=== PATIENT | female | born 1950 | race Caucasian/White ===

== ENCOUNTER 2017-09-22 07:40 | Day surgery (SDC) | payer MEDICARE, BC ==
[~2017-09-22 07:40] MED LIST: Lactated Ringers 1,000 ML IV SCH; Lidocaine 1%/Sod Bicarbonate in NS 8.4% 1 ML Syringe IDERM PRN; Sodium Chloride 0.9% 10 ML Syringe FLUSH PRN
[2017-09-22] MEDS ORDERED: Lidocaine 1% 4 ML ONE (08:27)
[2017-09-22] MEDS ORDERED: Midazolam 1 MG/ML 2 ML SDV ONE (08:27)
[2017-09-22] MEDS ORDERED: Propofol 200 MG/20 ML SDV ONE (08:27)
[2017-09-22] MEDS ORDERED: Ondansetron 4 MG/2 ML SDV ONE (08:27)
[2017-09-22] MEDS ORDERED: Rocuronium 50 MG/5 ML Vial ONE (08:27)
[2017-09-22] MEDS ORDERED: fentaNYL 250 MCG/5 ML SDV ONE (08:27)
[2017-09-22] MEDS ORDERED: ceFAZolin 1 GM Vial ONE (08:28)
[2017-09-22] MEDS ORDERED: Lidocaine 1% with EPINEPHrine 1:100,000 20 ML MDV ONE (08:37)
--- NOTE | 2017-09-22 08:52 | PCM.PREANE ---
Preanesthetic Assessment - Anesthesia/Transfusion/Family Hx Anesthesia History: Prior Anesthesia Without Reaction Family History of Anesthesia Reaction: No Transfusion History: No Prior Transfusion(s) - Review of Systems General: No Symptoms Pulmonary: No Symptoms Cardiovascular: No Symptoms Gastrointestinal: No Symptoms Neurological: No Symptoms Other: Reports: None - Physical Assessment NPO Status Date: 09/21/17 NPO Status Time: 20:00 Pulse: 69 O2 Sat by Pulse Oximetry: 96 Respiratory Rate: 16 Blood Pressure: 159/84 Temperature: 36.9 C Height: 1.6 m Weight: 69.853 kg ASA Class: 2 Mental Status: Alert & Oriented x3 Dentition: Reports: Normal Dentition, Bridge (on bottom front wire) Thyro-Mental Finger Breadths: 3 Mouth Opening Finger Breadths: 3 ROM/Head Extension: Full Lungs: Clear to Auscultation, Normal Respiratory Effort Cardiovascular: Regular Rate, Regular Rhythm, No Murmurs - Lab Values: on chart - Imaging/EKG Impressions: Sinus rhythm on chart - Allergies Allergies/Adverse Reactions: Allergies Allergy/AdvReac Type Severity Reaction Status Date / Time No Known Allergies Allergy Verified 09/21/17 14:41 - Anesthesia Plan Pre-Op Medication Ordered: None - Acknowledgements Anesthesia Type Planned: General Anesthesia Pt an Appropriate Candidate for the Planned Anesthesia: Yes Alternatives and Risks of Anesthesia Discussed w Pt/Guardian: Yes Pt/Guardian Understands and Agrees with Anesthesia Plan: Yes PreAnesthesia Questionnaire HEENT History: Reports: Impaired Vision Cardiovascular History: Reports: Hypertension Respiratory History: Reports: None Gastrointestinal History: Reports: None Genitourinary History: Reports: None [employer]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: Musculoskeletal History: Reports: None Neurological History: Reports: None Psychiatric History: Reports: None Endocrine/Metabolic History: Reports: None Hematologic History: Reports: None Immunologic History: Reports: None Oncologic (Cancer) History: Reports: None Dermatologic History: Reports: None - Past Surgical History Head Surgeries/Procedures: Reports: None HEENT Surgical History: Reports: None Cardiovascular Surgical History: Reports: None Respiratory Surgical History: Reports: None GI Surgical History: Reports: Colonoscopy Female Surgical History: Reports: Tubal Ligation Endocrine Surgical History: Reports: None Neurological Surgical History: Reports: None Musculoskeletal Surgical History: Reports: None Oncologic Surgical History: Reports: None Dermatological Surgical History: Reports: None - SUBSTANCE USE Smoking Status *Q: Never Smoker Tobacco Use Within Last Twelve Months: No Second Hand Smoke Exposure: No Days Per Week of Alcohol Use: 0 Number of Drinks Per Day: 0 Total Drinks Per Week: 0 Recreational Drug Use History: No - HOME MEDS Home Medications: Home Meds Eszopiclone 1 mg PO BEDTIME PRN 09/21/17 [History] LORazepam 0.5 mg PO BID PRN 09/21/17 [History] - CURRENT (IN HOUSE) MEDS Current Meds: Current Medications Lactated Ringer's (Ringers, Lactated) 1,000 mls @ 125 mls/hr IV ASDIRECTED ROSALVA Stop: 09/22/17 23:00 Lidocaine/Sodium Bicarbonate (Buffered Lidocaine 1% In Ns 8.4%) 0.25 ml IDERM ONETIME PRN PRN Reason: Prior to IV Start Stop: 09/22/17 18:00 Sodium Chloride (Saline Flush) 10 ml FLUSH ASDIRECTED PRN PRN Reason: Keep Vein Open Stop: 09/22/17 18:00 Discontinued Medications Cefazolin Sodium (Ancef) Confirm Administered Dose 2 gm .ROUTE .STK-MED ONE Stop: 09/22/17 08:29 Fentanyl (Sublimaze) Confirm Administered Dose 250 mcg .ROUTE .STK-MED ONE Stop: 09/22/17 08:28 Lidocaine HCl (Xylocaine-Mpf 1%) Confirm Administered Dose 4 mls @ as directed .ROUTE .STK-MED ONE Stop: 09/22/17 08:28 Lidocaine/Epinephrine (Xylocaine 1% With Epinephrine 1:100,000) Confirm Administered Dose 20 ml .ROUTE .STK-MED ONE Stop: 09/22/17 08:38 Midazolam HCl (Versed 1 Mg/Ml) Confirm Administered Dose 2 mg .ROUTE .STK-MED ONE Stop: 09/22/17 08:28 Ondansetron HCl (Zofran) Confirm Administered Dose 4 mg .ROUTE .STK-MED ONE Stop: 09/22/17 08:28 Propofol (Diprivan 20 Ml) Confirm Administered Dose 200 mg .ROUTE .STK-MED ONE Stop: 09/22/17 08:28 Rocuronium [place] (Zemuron) Confirm Administered Dose 50 mg .ROUTE .STK-MED ONE Stop: 09/22/17 08:28 Sodium Chloride (Normal Saline) Confirm Administered Dose 50 ml .ROUTE .STK-MED ONE Stop: 09/22/17 08:38
[2017-09-22] MEDS ORDERED: Scopolamine 1.5 MG Transdermal Patch TOP ONE (09:10)
[2017-09-22] MEDS ORDERED: diphenhydrAMINE 50 MG/ML SDV ONE (10:00)
[2017-09-22] MEDS ORDERED: Dexamethasone 4 MG/ML SDV ONE (10:00)
[2017-09-22] MEDS ORDERED: Lactated Ringers 1,000 ML ONE ×2 (10:00→11:14)
[2017-09-22] MEDS ORDERED: HYDROmorphone 0.5 MG/0.5 ML Syringe ONE ×2 (10:07)
[2017-09-22] MEDS: Sodium Chloride 0.9% 50 ML SDV ONE ×2 (10:13→10:14)
[2017-09-22] MEDS ORDERED: Ketorolac 30 MG/ML SDV ONE (10:22)
[2017-09-22] MEDS ORDERED: fentaNYL 100 MCG/2 ML SDV ONE ×2 (10:52→11:01)
[2017-09-22] MEDS ORDERED: Ondansetron 4 MG/2 ML SDV IVPUSH PRN (11:29)
[2017-09-22] MEDS ORDERED: Acetaminophen/oxyCODONE 325-5 MG Tab PO PRN (11:29)
--- NOTE | 2017-09-22 11:34 | PCM.OPNOTE ---
- General Post-Op/Procedure Note Date of Surgery/Procedure: 09/22/17 Operative Procedure(s): Total vaginal hysterectomy with bilateral salpingo- oophorectomy, anterior and posterior vaginal repair with perineoplasty, subfascial mid-urethral sling procedure Findings: 1. Grade 3 cystocele. 2. Grade 2 rectocele 3. Grade 2 uterine descensus 4. Breast urinary incontinence Pre Op Diagnosis: 1. Grade 3 cystocele. 2. Grade 2 rectocele. 3. Grade 2 uterine descensus. 4. Breast urinary incontinence Post-Op Diagnosis: Same Anesthesia Technique: General ET Tube Other Anesthesia Type: Lidocaine quarter percent with epinephrinelocal approximately 30 mL total Primary Surgeon: Luis Coello Secondary Surgeon: Malik Levin Anesthesia Provider: Trip Richardson Reason [employer] Was Necessary: Retraction, assistance, patient safety, quality of care Role of [employer]: Retraction and assistance Pathology: Uterus, bilateral fallopian tubes and ovaries in one specimen container Output, Urine Amount: 200 EBL in mLs: 35 Complications: None Condition: Good Free Text/Narrative:: Surgery duration: 74 minutes Procedure: The patient was placed in supine position on the operating table. She received 2 g of Ancef preoperatively for infection prophylaxis and had sequential compression stockings in place for DVT prophylaxis. General endotracheal anesthesia was accomplished. After positioning, and adequate prep and drape, the procedure was then performed. Sterile speculum was placed in the vagina and cervix was visualized. Cervix was injected with [lidocaine quarter percent with epinephrine]. [20 cc] used. A full circumference incision was made in the cervical epithelium. The bladder was pushed well back off cervix. Posterior cul-de-sac was then entered sharply without problems. Left uterosacral was crossclamped with a Enseal vessel closure system. The left uterosacral and then the right uterosacral ligament pedicles were developed using the Enseal system. The anterior cul-de-sac was then entered without problems and the uterine vasculature, cardinal ligament and broad ligament then developed using Enseal vessel closure system. The uterus was inverted at this time and upper broad ligament fallopian tube pedicles were crossclamped with Randolph clamps. Specimen was totally removed. Left and right fallopian tube was normal but atrophic in appearance secondary to menopause. Using the vessel closure system each of the tubes was then removed and sent with the specimen. Ovaries removed in similar fashion bilaterally all specimens were sent in separate container. The patient was found to be hemostatically intact at this time. A pursestring suture was and placed in the peritoneal cavity externalizing pedicles in case of bleeding. Anterior vaginal repair was performed in the routine fashion. The midline epithelium was grasped approximately 2 cm from the urethral meatus. The epithelium at the vaginal cuff after removal of the uterus was grasped 2 with Allis clamps. The epithelium was infiltrated with lidocaine quarter percent with epinephrine approximately 10 mL. Midline incision was made in the epithelium was dissected off the underlying support tissue. The vesicovaginal fascia that remained was then reapproximated midline with approximately 6 the type sutures of 0 Monocryl. This effectively reduced the cystocele. Excess epithelium was removed on each side sharply and the epithelium was reapproximated using 3-0 Monocryl a short running suture. At this time the vaginal cuff was closed anteriorly to posteriorly. Patient's bladder was again drained with a red rubber catheter. 35 mL normal urine was removed. The epithelium overlying the urethra was grasped approximately 1 cm from the urethral meatus and approximately 2 cm cephalad from there with Allis clamps. The area of the skin overlying the medial aspect of the obturator foramen on each side just posterior to the origin the abductor longus muscle was marked with a marking pen. These 2 areas and the sub-fascial layer of the vaginal were then infiltrated with lidocaine quarter percent with epinephrinetotal of approximately 10 mL was used. incisions made in the epithelium overlying the urethra and 2 small stab wounds 3 mm in length were made in the 2 areas of the panty line of the patient. The subfascial planes and adequately dissected bilaterally to allow placement of the mesh. The helical adapter was then placed through the obturator on patient's left side brought out through the vaginal subfascial plane. Mesh was attached to it and then was pulled back through the obturator foramen. Same was done on the right side. Mesh was then snugged up to the urethra. Dilator 15 mm in diameter was used as a spacer to place the mesh in a tension-free position. At this point the mesh was cut off at the skin surface and the dilator was removed. The midline epithelium was closed with a short running suture of 3-0 Monocryl. Skin incisions were closed with Dermabond skin glue. These bladder was filled with approximately 20/40 cc of normal saline at the very end of the case to facilitate voiding and therefore discharged home. Posterior repair was then performed.The uppermost portion of the rectocele was identified and was grasped midline with an Allis clamp. The introital area was grasped at approximately the 4:00 and 8:00 positions at the junction of the vaginal and vulvar epithelium. The area of epithelium was then infiltrated with lidocaine quarter percent with epinephrine. A masoud-shaped piece of epithelium was removed from the posterior introital and perineal area. The vaginal epithelium was then undermined superiorly to the top of the rectocele. Was then incised midline. With sharp and blunt dissection the epithelium was then dissected off of the underlying vesicovaginal fascia. At this point approximately 4 sutures of 0 Monocryl were placed to reapproximate the lateral supportive tissue midline and reduce the rectocele. The excess epithelium was then excised and the epithelium overlying the rectocele repair was then reapproximated with a running suture of 3-0 Monocryl. Perineoplasty was performed using 4 V-type stitches of 0 Monocryl. This lengthened the perineal body and the vagina. Also change the angle of vagina. At this point the epithelium over the perineum was closed in an episiotomy fashion using the 3-0 Monocryl suture. Patient was returned to supine position and awakened from general endotracheal anesthesia. She tolerated the procedure was then left the operating room in satisfactory condition.
[2017-09-22] MEDS ORDERED: fentaNYL 100 MCG/2 ML SDV IVPUSH PRN (11:59)
--- NOTE | 2017-09-22 12:00 | PCM.POSTAN ---
POST ANESTHESIA ASSESSMENT - MENTAL STATUS Mental Status: Somnolent - VITAL SIGNS Pulse Rate: 77 SaO2: 97 Resp Rate: 11 Blood Pressure: 129/92 Temperature: 36.3 C - RESPIRATORY Respiratory Status: Respiratory Rate WNL, Airway Patent, O2 Saturation Stable, Supplemental Oxygen - CARDIOVASCULAR CV Status: Pulse Rate WNL, Blood Pressure Stable - GASTROINTESTINAL GI Status: No Symptoms - PAIN Pain Score: 0 - POST OP HYDRATION Hydration Status: Adequate & Stable - OBSERVATIONS Free Text/Narrative:: no anesthesia complications noted
== END 2017-09-22 15:05 | disposition home or self-care (01) ==
LOC: JD.SDS 07:40
PROVIDERS: ATTEND Obstetrics & Gynecology
DX: N72 Inflammatory disease of cervix uteri (principal); D25.9 Leiomyoma of uterus, unspecified; N83.8 Other noninflammatory disorders of ovary, fallopian tube and broad ligament; L08.9 Local infection of the skin and subcutaneous tissue, unspecified; N81.10 Cystocele, unspecified; N81.6 Rectocele; N39.3 Stress incontinence (female) (male); I10 Essential (primary) hypertension; F41.9 Anxiety disorder, unspecified; Z79.899 Other long term (current) drug therapy; Z98.51 Tubal ligation status
CPT/HCPCS: 36415; 57260; 57288; 58262; 86850; 86900; 86901; A9270; C1771; J0690; J1100; J1170; J1200; J1885; J2250; J2405; J3010; J7120; J2704